=== PATIENT | male | born 1970 | race Caucasian/White ===

== ENCOUNTER → 2020-03-18 15:22 | Outpatient (BNVA) | payer BC, SELFPAY | PROVIDERS: PCP Hospitalist; Visit Provider Urology | DX: Z76.89 Persons encountering health services in other specified circumstances (principal) ==

== ENCOUNTER → 2020-04-18 13:58 | Outpatient (BNVA) | payer BC, SELFPAY | PROVIDERS: PCP Hospitalist; Visit Provider Urology | DX: N32.0 Bladder-neck obstruction (principal); R39.12 Poor urinary stream | CPT/HCPCS: 52000; 81002 ==

== ENCOUNTER 2020-06-02 06:09 | Day surgery (SDC) | payer BC, SELFPAY ==
[2020-05-30 09:41] VITALS: BMI 33.1
--- NOTE | 2020-05-30 10:05 | P.CONAN_ITS ---
Documented by User: Luanne Wyatt 05/30/20 10:06 HPI - Anesthesia Eval Consult details Narrative: 50yo M for [facility] A[facility]state [facility] Past Medical History Medical History Anxiety BPH (benign prostatic hyperplasia) HTN (hypertension) Family History Family History Father Prostate cancer screening Surgical History Surgical History Hx of cholecystectomy Social History Social History Smoking Status: Current every day smoker Tobacco Type: Cigar Cigarettes Per Day: 6 Use of substances other than those prescribed or required for medical reasons: No Advance Directives: No Advance Directives Information Provided: Yes Meds Allergies Allergy/AdvReac Type Severity Reaction Status Date / Time No Known Allergies Allergy Verified 06/02/20 06:14 Home Medications Medication Instructions Recorded Confirmed Type lisinopril 40 mg tablet 40 mg PO DAILY 03/18/20 03/18/20 History metoprolol succinate 100 mg 100 mg PO DAILY 03/18/20 03/18/20 History tablet,extended release 24 hr tamsulosin 0.4 mg capsule 0.8 mg PO DAILY 03/18/20 03/18/20 History Exam Exam Date and Time: May 30, 2020 1005 Height,Weight and Vital Signs: Height 5 ft 10 in Weight 104.78 kg Assessment and Plan Assessment Anesthesia Assessment: Chart Reviewed Documented by User: Shital García 06/02/20 07:31 [facility] Past Medical History Medical History Anxiety BPH (benign prostatic hyperplasia) HTN (hypertension) Family History Family History Father Prostate cancer screening Surgical History Surgical History Hx of cholecystectomy Social History Social History Smoking Status: Current every day smoker Tobacco Type: Cigar Cigarettes Per Day: 6 Use of substances other than those prescribed or required for medical reasons: No Advance Directives: No Advance Directives Information Provided: Yes Meds Allergies Allergy/AdvReac Type Severity Reaction Status Date / Time No Known Allergies Allergy Verified 06/02/20 06:14 Home Medications Medication Instructions Recorded Confirmed Type lisinopril 40 mg tablet 40 mg PO DAILY 03/18/20 03/18/20 History metoprolol succinate 100 mg 100 mg PO DAILY 03/18/20 03/18/20 History tablet,extended release 24 hr tamsulosin 0.4 mg capsule 0.8 mg PO DAILY 03/18/20 03/18/20 History Exam Airway Mallampati Class: II TM Dist: >3cm Neck ROM: Full Assessment and Plan Assessment Anesthesia Assessment: Anesthesia Plan Discussed and Chart Reviewed Final Anesthetic Review NPO: Yes ASA Class: II Final Preanesthetic Review: No Changes in Pt Med Stat, Meds/Allgs Chart Reviewed, Consent Obtained/Reviewed and Anes Risks/Benef Reviewed Patient Risk: Low Procedure Risk: Low Assessment/Block/Sedation in SS: Assess/Block/Sedation-SS Anesthetic Plan Anesthetic Plan: GA Disposition: Standard PACU
[2020-06-02] VITALS (9 sets, daily range): BP systolic 100–133; BP diastolic 56–85; PULSE 52–60; RESP 16–20; TEMP 36.2–36.3; O2SAT 94–99; BMI 34.4
[2020-06-02] MEDS: levoFLOXacin 500 MG TABLET PO (06:42)
[2020-06-02] MEDS: Lactated Ringers 1,000 ML 100 ML IVCONT (06:48)
--- NOTE | 2020-06-02 07:34 | MHC.SHP ---
Pre-Procedural Eval Section A The patient is an INPATIENT: No Changes since office visit: No Cold of Flu in the past 2 weeks, No New Medical Problems, No Changes in Medication and No Patient answered all questions The History & Physical has been completed within 30 days and I have reviewed it.: Yes Section B Chief Complaint: bladder neck obstruction Allergies: Allergies Allergy/AdvReac Type Severity Reaction Status Date / Time No Known Allergies Allergy Verified 06/02/20 06:14 Plan Diagnosis/Plan: Unchanged I have reviewed the history and physical and performed a pertinent physical examination on my patient. No changes have occurred unless specified. Laser incision of the prostate
--- NOTE | 2020-06-02 08:34 | PM.OP ---
Brief Operative Note Date of Service: 06/02/20 Pre-op diagnosis: BPH Post-op diagnosis: same Procedure: Laser enucleation of the prostate Implants: None Surgeon: Adis Chen MD Anesthesia: GLMA Estimated blood loss (mL): 0 Pathology: other (Prostate) Condition: stable Disposition: same day
--- NOTE | 2020-06-02 08:35 | W.PM.OPN ---
Operative Note Operative Note Date of Service: 06/02/20 Narrative: PreOperative Diagnosis: BPH with nocturia weakness of stream Post Operative Diagnosis: BPH with nocturia Procedure: Laser enucleation of the prostate Surgeon: Dr Adis Chen Anesthesia: General Indications for procedure: This is a 50-year-old male. Has tried alpha blockers. Once this was successful he had a large median lobe on cystoscopy in understands that he would be better with a mechanical procedure. Plan is to use GreenLight laser for enucleation of the median lobe area. He is aware that the main side effect will be retrograde ejaculation. Procedure: After informed consent was verified the patient was brought to the operating room and placed in a supine position. anesthesia was administered per protocol. Patient was placed in modified dorsal lithotomy position and prepped and draped in a sterile fashion. Safety pause time-out was performed. Antibiotics had been given. Twenty-three [place] [employer] laser scope was inserted per urethra. No abnormalities noted in the anterior or posterior urethra. There was a large lower component of the left lateral lobe pushing across similar to a median lobe and crowding the prostate. Both ureteric orifices were normal position. There was trabeculation throughout the bladder indicative of continued bladder effort for emptying. Using a GreenLight laser we were able to make incisions 1st at the 5 and 07:00 o'clock positions. The 7 o'clock position was taken down to bladder neck fibers. It ran from the bladder neck down to the veru. On this released the median lobe pump from the lower aspect of the left lateral lobe. This area was then enucleated and ablated. The resection was taken laterally out to create a large median defect. Decision was made not to proceed with removal of lateral lobes given the young age of the patient. At the completion the procedure prostate tissue was removed from the bladder. In the area had minimal bleeding. A 20 [place] 30 cc catheter was placed without difficulty and mild traction was placed. A belladonna and opiate suppository was placed postprocedure pain management. He tolerated procedure well was extubated in operating room transferred in stable condition to the recovery area Pathology: Prostate Drains: Mg catheter 20 [place] 30 cc balloon
[2020-06-02] MEDS: oxyCODONE HCl Immed Release 5 MG TABLET PO (08:50)
[2020-06-02] MEDS: fentaNYL citrate/PF 100 MCG/2 ML VIAL 50 MCG IVPUSH ×2 (08:50→09:10)
[2020-06-02] MEDS: Acetaminophen 325 MG TABLET 650 MG PO (08:50)
== END 2020-06-02 10:36 | disposition home or self-care (01) ==
PROVIDERS: PCP Hospitalist; Visit Provider Urology
PROC: 0V507ZZ Destruction of Prostate, Via Natural or Artificial Opening (ICD-10-PCS; CPT 52648; principal; 2020-06-02 07:30)
DX: N40.1 Benign prostatic hyperplasia with lower urinary tract symptoms (principal); R35.1 Nocturia; R39.12 Poor urinary stream; N41.9 Inflammatory disease of prostate, unspecified; I10 Essential (primary) hypertension; Z79.899 Other long term (current) drug therapy; F17.290 Nicotine dependence, other tobacco product, uncomplicated; F17.210 Nicotine dependence, cigarettes, uncomplicated; Z90.49 Acquired absence of other specified parts of digestive tract
CPT/HCPCS: 52648; 88305; J2405; J3010

== ENCOUNTER → 2020-06-11 13:03 | Outpatient (BNVA) | payer BC, SELFPAY | PROVIDERS: PCP Hospitalist; Visit Provider Urology ==